=== PATIENT | female | born 1985 | race African-American/Black ===

== ENCOUNTER 2016-09-08 09:01 | Emergency (ER) | payer SELFPAY ==
[~2016-09-08] VITALS: Ht 162.6 cm; Wt 55.0 kg
[~2016-09-08 09:01] MED LIST: ASPI81TA11 PO; IBUP-232 PO
[2016-09-08 09:04] VITALS: BP 123/71; PULSE 72; RESP 15; TEMP 98.2; O2SAT 99
[2016-09-08] MEDS ORDERED: SODIUM CHLOR 0.9% 1000 ML INJ 1,000 ML IV ONE (09:48)
[2016-09-08] MEDS ORDERED: PROCHLORPERAZINE INJ 10 MG/2 ML VIAL IVP ONE (10:00)
[2016-09-08] MEDS ORDERED: SODIUM CHLORIDE 0.9% FLUSH 5 ML FLUSH IVF PRN (10:00)
[2016-09-08] MEDS ORDERED: diphenhydrAMINE HCL 50 MG/ML VIAL IVP ONE (10:00)
[2016-09-08] MEDS ORDERED: KETOROLAC TROMETHAMINE 30 MG/ML (IVP) VIAL IVP ONE (10:00)
[2016-09-08 11:52] VITALS: BP 101/63; PULSE 69; RESP 16; O2SAT 99
--- NOTE | 2016-09-08 12:07 | PD ---
HPI Chief Complaint: Headache Time Seen by Provider: 09:45 Travel History International Travel<30 days: No Contact w/Intl Traveler<30days: No Traveled to known affect area: No History of Present Illness HPI 31-year-old female presents with frontal headache that she has been having over the past couple months. She states she was here in June and had an extensive workup per her family after she had weakness. Today she only has a headache and no other concurrent complaints. She states she has been trying [id number] pain medication without relief. She denies possibility of . Quality is throbbing. Severity is moderate. Pain is worse with lights or movement. PFSH Past Medical History Asthma: Yes Blood Disorders: No Cancer: No Cardiovascular Problems: No Diminished Hearing: No Endocrine: No Genitourinary: No Immune Disorder: No Musculoskeletal: No Neurologic: No Psychiatric: No Respiratory: Yes Immunizations Current: Yes Migraines: Yes Influenza Vaccination: No ?: Unknown LMP: MAY 2016 Menopausal: No : 7 Para: 3 Miscarriage: 4 Past Surgical History AICD: No Arteriovenous Shunt: No Section: Yes (X2) Insulin Pump: No Joint Replacement: No Pacemaker: No Other Surgery: No Social History Alcohol Use: No Tobacco Use: No Substance Use: No Allergies-Medications (Allergen,Severity, Reaction): Coded Allergies: Arredondo (Verified Allergy, Severe, FACIAL ITCHING & SWELLING, 09/08/16) Tylenol (Verified Adverse Reaction, Intermediate, Nausea/Vomiting, 09/08/16 ) Reported Meds & Prescriptions Reported Meds & Active Scripts Active Review of Systems Except as stated in HPI: all other systems reviewed are Neg Physical Exam Narrative GENERAL: Well-nourished, well-developed patient. Well-appearing SKIN: Warm and dry. HEAD: Normocephalic and atraumatic. EYES: No injection or drainage. ENT: No nasal drainage noted. NECK: Supple, trachea midline. No meningeal signs CARDIOVASCULAR: Regular rate and rhythm RESPIRATORY: Breath sounds equal bilaterally. No accessory muscle use. GASTROINTESTINAL: Abdomen soft, non-tender, nondistended. EXTREMITIES: No edema. NEUROLOGICAL: Awake and alert. Motor and sensory grossly within normal limits. Normal speech. Data Data Last Documented VS Vital Signs Date Time Temp Pulse Resp B/P Pulse Ox O2 Delivery O2 Flow Rate FiO2 09/08/16 11:52 69 16 101/63 99 Room Air 09/08/16 09:04 98.2 Orders Ecg Monitoring (09/08/16 09:48) Iv Access Insert/Monitor (09/08/16 09:48) Oximetry (09/08/16 09:48) Sodium Chloride 0.9% Flush (Ns Flush) (09/08/16 10:00) Ketorolac Inj (Toradol Inj) (09/08/16 10:00) Prochlorperazine Inj (Compazine Inj) (09/08/16 10:00) Diphenhydramine Inj (Benadryl Inj) (09/08/16 10:00) Sodium Chlor 0.9% 1000 Ml Inj (Ns 1000 M (09/08/16 09:48) MDM Medical Decision Making Medical Screen Exam Complete: Yes Emergency Medical Condition: Yes Medical Record Reviewed: Yes (past history confirmed. mri in june no acute) Interpretation(s) Vital Signs Date Time Temp Pulse Resp B/P Pulse Ox O2 Delivery O2 Flow Rate FiO2 09/08/16 11:52 69 16 101/63 99 Room Air 09/08/16 09:04 98.2 72 15 123/71 99 Differential Diagnosis Tension, migraine, cluster Narrative Course Given recent workup with benign exam and vitals and intermittent headache over a couple months no indication today to image, will dose medications and reevaluate Patient denies any new complaints and states that they are feeling better. Patient happy with care, all questions answered. Patient knows that follow up is incumbent on them and to return to the emergency room immediately if new or worsening symptoms develop. Patient given strict return precautions, vitals reviewed and are normal, agrees to further workup as an outpatient including any further imaging or testing here. Diagnosis Primary Impression: Headache Qualified Code: R51 - Acute nonintractable headache, unspecified headache type Patient Instructions: General Instructions Additional Instructions: return as needed, alternate tylenol and motrin, set up a primary for further care Med/Other Pt SpecificInfo: No Change to Meds Disposition: 01 DISCHARGE HOME Condition: Stable Nat Quiroz MD Sep 08, 2016 12:07
== END 2016-09-08 12:23 | disposition home or self-care (01) ==
LOC: NEPE 09:01
DX: R51 Headache (principal); R53.1 Weakness; J45.909 Unspecified asthma, uncomplicated
CPT/HCPCS: 96361; 96374; 96375; 99283; J0780; J1200; J1885; J7030